=== PATIENT | female | born 1995 ===

== ENCOUNTER 2017-09-15 19:24 | Emergency (ER) | payer BC, OTHER ==
[2017-09-15 20:05] VITALS: BP 119/66
--- NOTE | 2017-09-15 20:20 | UC ---
Elbow Pain - HPI Summary HPI Summary: 21 yo female hit her funny bone left elbow about a week ago hit a metal pipe has persistent pain and tingling down arm to left 4th and 5th digits she has been able to work since injury she is right handed - History of Current Complaint Chief Complaint: UCUpperExtremity Stated Complaint: LEFT ARM NUMBNESS x 1WK Time Seen by Provider: 09/15/17 20:06 Hx Obtained From: Patient Hx Last Menstrual Period: 08/23/17 Onset/Duration: Days - about a week Severity Initially: Moderate Severity Currently: Mild Pain Intensity: 2 Pain Scale Used: 0-10 Numeric Character: Aching Aggravating Factor(s): Other - touch Alleviating Factor(s): Rest Associated Signs And Symptoms: Positive: Numbness/Tingling - Allergies/Home Medications Allergies/Adverse Reactions: Allergies Allergy/AdvReac Type Severity Reaction Status Date / Time cefaclor [From [facility]] Allergy Hives Verified 09/15/17 19:58 Penicillins Allergy Hives Verified 09/15/17 19:58 Home Medications: Home Medications NK [No Home Medications Reported] 09/15/17 [History Confirmed 09/15/17] PMH/Surg Hx/FS Hx/Imm Hx Previously Healthy: Yes - Surgical History Surgical History: Yes Surgery Procedure, Year, and Place: Ears. Adenoids - Family History Known Family History: Positive: Cardiac Disease, Hypertension, Diabetes - grandmother - Social History Alcohol Use: None Substance Use Type: None Smoking Status (MU): Never Smoked Tobacco Review of Systems Constitutional: Negative Skin: Negative Eyes: Negative ENT: Negative Respiratory: Negative Cardiovascular: Negative Gastrointestinal: Negative Genitourinary: Negative Motor: Negative Neurovascular: Negative Musculoskeletal: Arthralgia Neurological: Paresthesia Psychological: Negative Is Patient Immunocompromised?: No All Other Systems Reviewed And Are Negative: Yes Physical Exam Triage Information Reviewed: Yes Appearance: Well-Appearing, No Pain Distress, Well-Nourished Vital Signs: Initial Vital Signs Temp 98.3 F 09/15/17 19:58 Pulse 60 09/15/17 19:58 Resp 14 09/15/17 19:58 BP 119/66 09/15/17 19:58 Pulse Ox 100 09/15/17 19:58 Eyes: Positive: Conjunctiva Clear ENT: Positive: Hearing grossly normal. Negative: Nasal congestion, Nasal drainage, Trismus, Muffled voice, Hoarse voice Neck: Positive: Supple, Nontender Respiratory: Positive: Lungs clear, Normal breath sounds, No respiratory distress, No accessory muscle use Cardiovascular: Positive: RRR, No Murmur Musculoskeletal: Positive: ROM Intact, Other: - render medial condyle left elbow Neurological: Positive: Alert, Muscle Tone Normal, Other: - sensaton intact Psychological Exam: Normal Skin Exam: Normal Diagnostics - Radiology No standard instances Xray Interpretation: No Acute Changes - left elbow Radiology Interpretation Completed By: ED Physician Elbow Pain Course/Dx - Differential Dx/Diagnosis Provider Diagnoses: left elbow contusion. 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
--- NOTE | 2017-09-15 21:27 | RAD ---
INDICATION: Numbness and tingling along the ulnar aspect of the left forearm including the left small and ring fingers since a traumatic injury 1 week earlier COMPARISON: None. TECHNIQUE: 4 views left elbow. REPORT: The visualized bones of the left elbow are well corticated and properly aligned. There is no radiographically apparent fracture or dislocation. There is no radiographic evidence of pathologic joint effusion. IMPRESSION: Normal radiograph of the left elbow. If the patient's symptoms persist further follow-up imaging is recommended.
== END 2017-09-15 21:08 | disposition home or self-care (01) ==
LOC: UCCORT 19:24
DX: S50.02XA Contusion of left elbow, initial encounter (principal); W22.09XA Striking against other stationary object, initial encounter; Y93.9 Activity, unspecified; Y92.9 Unspecified place or not applicable; G56.22 Lesion of ulnar nerve, left upper limb; Z88.1 Allergy status to other antibiotic agents; Z88.0 Allergy status to penicillin
CPT/HCPCS: 99211; G0463